=== PATIENT | female | born 2000 | race Caucasian/White ===

== ENCOUNTER 2023-10-20 19:39 | Emergency (ER) | payer MEDICAID ==
[~2023-10-20] VITALS: Ht 162.6 cm; Wt 82.0 kg
[2023-10-20 19:46] VITALS: BP 147/100; O2SAT 99
[2023-10-20 19:51] VITALS: PULSE 110; RESP 20
[2023-10-20 21:49] LABS: BASOPHILS % 0.3 % (0.0-2.0); EOSINOPHILS % 2.5 % (0.0-5.0); HEMATOCRIT. 42.1 % (36.0-48.0); HEMOGLOBIN. 14.2 g/dL (12.0-16.0); LYMPHOCYTES % 27.5 % (20.0-50.0); MEAN CORPUSCULAR HEMOGLOBIN 29.2 pg (28.0-32.0); MEAN CORPUSCULAR HGB CONC 33.6 g/dL (31.0-37.0); MEAN CORPUSCULAR VOLUME 86.8 fL (81.0-99.0); MEAN PLATELET VOLUME 9.4 fl (7.4-10.4); MONOCYTES % 6.7 % (2.0-8.0); PLATELET 304 x1000/uL (130-400); RED BLOOD CELL COUNT 4.85 mill/uL (4.2-5.4); RED CELL DISTRIBUTION WIDTH 12.8 % (11.6-14.6); WHITE BLOOD COUNT 12.9 x1000/uL (4.5-11.0)
[2023-10-20 21:56] LABS: CHLORIDE 107 mEq/L (98-107); POTASSIUM 3.9 mEq/L (3.5-5.1); SODIUM 138 mEq/L (136-145)
[2023-10-20 21:57] LABS: CARBON DIOXIDE 26 mEq/L (21-32)
[2023-10-20 21:58] LABS: CALCIUM 9.9 mg/dL (8.7-10.4)
[2023-10-20 22:02] LABS: CREATININE 0.7 mg/dL (0.6-1.0); GLUCOSE 87 mg/dL (70-105)
[2023-10-20 22:03] LABS: UREA NITROGEN BLOOD 8 mg/dL (9-23)
[2023-10-20 22:04] LABS: ALANINE AMINOTRANSFERASE 10 IU/L (10-49); ALBUMIN 4.7 g/dL (3.2-4.8); ASPARTATE AMINOTRANSFERASE 14 IU/L (<34)
[2023-10-20] MEDS ORDERED: LOPERAMIDE HCL 2MG CAPSULE PO ONE (22:45)
[2023-10-20] MEDS ORDERED: ACETAMINOPHEN 325MG TABLET PO ONE (22:45)
[2023-10-20 23:02] VITALS: TEMP 97.8
[2023-10-20] MEDS: LOPERAMIDE HCL 2MG CAPSULE PO NR (23:02)
[2023-10-20] MEDS: ACETAMINOPHEN 325MG TABLET PO NR (23:02)
[2023-10-20] MEDS ORDERED: IMOD MT (23:17)
== END 2023-10-20 23:32 | disposition home or self-care (01) ==
LOC: ER 19:39
DX: R19.7 Diarrhea, unspecified (principal)
CPT/HCPCS: 36415; 76830; 76856; 80053; 85025; 99284